=== PATIENT | female | born 1955 | race Caucasian/White ===

== ENCOUNTER 2020-09-21 22:29 | Inpatient (IN) ==
[2020-09-22] MEDS ORDERED: *HR* Promethazine 25 MG/ML VIAL IM PRN (03:44)
[2020-09-22] MEDS ORDERED: Ondansetron 4 MG/2 ML VIAL IVP PRN (03:44)
[2020-09-22] MEDS ORDERED: Melatonin 3 MG TABLET PO PRN (03:44)
[2020-09-22] MEDS ORDERED: Acetaminophen 325 MG TABLET PO PRN (03:44)
[2020-09-22] MEDS ORDERED: *HR* HYDROcodone/Acet 5/325 mg TABLET PO PRN (03:44)
[2020-09-22] MEDS ORDERED: Naloxone 0.4 MG/ML INJ IVP PRN (03:44)
[2020-09-22] MEDS ORDERED: Azithromycin 500 MG in 0.9 % Sodium Chloride 250 ML IVPB SCH (04:00)
[2020-09-22 04:37] LABS: Basophils % 0.1 %; Hematocrit 39.1 % (35.3-44.9); Hemoglobin 12.7 g/dL (11.5-15.4); Immature Granulocytes % 0.8 % (0-4); Lymphocytes % 18.7 %; Mean Corpuscular HGB Conc 32.5 g/dL (31.6-35.5); Mean Corpuscular Hemoglobin 30.4 pg (28.0-33.3); Mean Corpuscular Volume 93.5 fL (83.0-100.0); Mean Platelet Volume 11.3 fL (9.4-12.4); Monocytes # 0.2 K/mcL (0.0-1.3); Monocytes % 2.2 %; Neutrophils # 5.6 K/mcL (1.6-8.9); Nucleated Red Blood Cells 0.3 /100 WBC (0); Platelet Count 149 K/mcL (140-400); Red Blood Count 4.18 M/mcL (3.82-4.97); Red Cell Distribution Width 13.2 % (11.5-14.5); Segmented Neutrophils % 78.2 %; White Blood Count 7.2 K/mcL (4.3-11.1)
[2020-09-22 04:44] LABS: INR 1.2; Prothrombin Time 14.2 Seconds (9.4-12.1)
[2020-09-22] MEDS ORDERED: Perflutren Lipid Microsphere 1.3 ML in 0.9 % Sodium Chloride 8.7 ML IVP PRN (04:53)
[2020-09-22 04:55] LABS: Lymphocytes # 1.4 K/mcL (0.6-4.6)
[2020-09-22] MEDS ORDERED: Ipratropium/Albuterol Neb 3 ML IH PRN (04:59)
[2020-09-22 05:01] LABS: Alanine Aminotransferase 27 Units/L (7-52); Albumin 3.7 g/dL (3.5-5.7); Albumin/Globulin Ratio 1.2 (1.1-2.2); Alkaline Phosphatase 76 Units/L (34-104); Aspartate Amino Transferase 21 Units/L (13-39); BUN/Creatinine Ratio 17 (6-26); Bilirubin,Total 0.6 mg/dL (0.3-1.0); Blood Urea Nitrogen 14 mg/dL (8-23); Calcium 8.5 mg/dL (8.6-10.3); Carbon Dioxide 28 mEq/L (23-29); Chloride 105 mEq/L (98-107); Chol/HDL Ratio 5.8 (0-4.9); Cholesterol 156 mg/dL (< 200); Globulin 3.1 g/dL (2.4-3.5); Glucose 162 mg/dL (70-105); HDL Cholesterol 27 mg/dL (40-59); LDL Cholesterol,Calculated 100 mg/dL (< 100); Osmolality,Calculated 298 (280-300); Phosphorous 2.9 mg/dL (2.7-4.5); Potassium 3.4 mEq/L (3.5-5.1); Sodium 142 mEq/L (136-145); Total Protein 6.8 g/dL (6.4-8.9); Triglycerides 145 mg/dL (< 150); eGFR For African Americans > 60 (> 60); eGFR For Non-African Americans > 60 (> 60)
[2020-09-22] MEDS ORDERED: *HR* Heparin 5,000 UNIT/ML VIAL IVP ONE (05:10)
[2020-09-22] MEDS ORDERED: *HR* Heparin 5,000 UNIT/ML VIAL IVP PRN ×2 (05:10)
[2020-09-22 05:21] LABS: Platelet Estimate Normal (Normal); Polychromasia 1+ (Not Present)
[2020-09-22] MEDS: MethylPREDNISolone 40 MG/ML VIAL IVP SCH ×2 (06:27→17:09)
[2020-09-22] MEDS: Heparin 25,000UNIT/250ML 1/2NS 25,000 UNIT/250 ML IV.SOLN IVC SCH (06:28)
[2020-09-22] MEDS: Azithromycin 500 MG in 0.9 % Sodium Chloride 250 ML IVPB SCH (06:35)
[2020-09-22] MEDS ORDERED: cefTRIAXone 1,000 MG in Water for inj. (sterile) 10 ML IVP SCH (09:00)
[2020-09-22] MEDS: Furosemide 40 MG/4 ML VIAL IVP SCH ×2 (10:11→21:09)
[2020-09-22] MEDS: cefTRIAXone 1,000 MG in Water for inj. (sterile) 10 ML IVP SCH (10:18)
[2020-09-22] MEDS: Aspirin 81 MG TAB.CHEW PO SCH (14:00)
[2020-09-22] MEDS ORDERED: traZODone 50 MG TABLET PO PRN (17:04)
[2020-09-22] MEDS ORDERED: diazePAM 10 MG TABLET PO PRN (17:04)
[2020-09-23] MEDS: Heparin 25,000UNIT/250ML 1/2NS 25,000 UNIT/250 ML IV.SOLN IVC SCH (05:48)
[2020-09-23] MEDS: Azithromycin 500 MG in 0.9 % Sodium Chloride 250 ML IVPB SCH (05:49)
[2020-09-23] MEDS: MethylPREDNISolone 40 MG/ML VIAL IVP SCH (05:49)
[2020-09-23] MEDS ORDERED: FLUoxetine 20 MG CAPSULE PO SCH (09:00)
[2020-09-23] MEDS: Ascorbic Acid 500 MG TABLET PO SCH (09:00)
[2020-09-23] MEDS: Aspirin 81 MG TAB.CHEW PO SCH (09:00)
[2020-09-23] MEDS ORDERED: NON-FORMULARY MEDICATION 1 EACH EACH (Pravastatin Sodium [Pravachol] 40 MG Tablet) PO SCH (09:00)
[2020-09-23] MEDS: Cholecalciferol (D-3) 1,000 UNIT (25MCG) TABLET PO SCH (09:00)
[2020-09-23] MEDS: cefTRIAXone 1,000 MG in Water for inj. (sterile) 10 ML IVP SCH (09:00)
[2020-09-23] MEDS: amLODIPine 5 MG TABLET PO SCH (09:00)
[2020-09-23] MEDS: Furosemide 40 MG/4 ML VIAL IVP SCH ×2 (09:00→21:20)
[2020-09-23 09:48] LABS: BUN/Creatinine Ratio 20 (6-26); Blood Urea Nitrogen 16 mg/dL (8-23); Calcium 8.8 mg/dL (8.6-10.3); Carbon Dioxide 32 mEq/L (23-29); Chloride 101 mEq/L (98-107); Glucose 155 mg/dL (70-105); Magnesium 2.1 mg/dL (1.6-2.6); Osmolality,Calculated 298 (280-300); Phosphorous 2.7 mg/dL (2.7-4.5); Potassium 3.2 mEq/L (3.5-5.1); Sodium 142 mEq/L (136-145); eGFR For African Americans > 60 (> 60); eGFR For Non-African Americans > 60 (> 60)
[2020-09-23] MEDS ORDERED: Potassium Chloride Elixir 20 MEQ/15 ML UDC PO ONE (14:02)
[2020-09-23] MEDS: Doxycycline 100 MG CAPSULE PO SCH (21:20)
[2020-09-24 02:46] LABS: BUN/Creatinine Ratio 24 (6-26); Blood Urea Nitrogen 19 mg/dL (8-23); Calcium 8.9 mg/dL (8.6-10.3); Carbon Dioxide 31 mEq/L (23-29); Chloride 101 mEq/L (98-107); Glucose 138 mg/dL (70-105); Osmolality,Calculated 296 (280-300); Phosphorous 2.4 mg/dL (2.7-4.5); Potassium 3.3 mEq/L (3.5-5.1); Sodium 141 mEq/L (136-145); eGFR For African Americans > 60 (> 60); eGFR For Non-African Americans > 60 (> 60)
[2020-09-24] MEDS ORDERED: Potassium Phosphate 44 MEQ in 0.9 % Sodium Chloride 250 ML IVPB ONE (07:34)
[2020-09-24] MEDS ORDERED: predniSONE 20 MG TABLET PO SCH (09:00)
[2020-09-24] MEDS ORDERED: Azithromycin 250 MG TABLET PO SCH (09:00)
[2020-09-24] MEDS: amLODIPine 5 MG TABLET PO SCH (09:20)
[2020-09-24] MEDS: Ascorbic Acid 500 MG TABLET PO SCH (09:20)
[2020-09-24] MEDS: Cholecalciferol (D-3) 1,000 UNIT (25MCG) TABLET PO SCH (09:20)
[2020-09-24] MEDS: Doxycycline 100 MG CAPSULE PO SCH (09:20)
[2020-09-24] MEDS: Aspirin 81 MG TAB.CHEW PO SCH (09:20)
[2020-09-24] MEDS: Furosemide 40 MG/4 ML VIAL IVP SCH (09:21)
[2020-09-24 15:12] VITALS: BP 143/78; PULSE 66; TEMP 98.4; O2SAT 96
== END 2020-09-24 18:20 | disposition home or self-care (01) | DRG 280 ==
LOC: 2NENU → SUATTDRO 09-22 02:31
PROVIDERS: ADMIT Family Medicine; ATTEND Internal Medicine

== ENCOUNTER 2021-01-13 17:39 | Observation (INO) ==
[2021-01-13] MEDS ORDERED: cefTRIAXone 1,000 MG in Water for inj. (sterile) 10 ML IVP ONE (18:20)
[2021-01-13] MEDS ORDERED: methylPREDNISolone 125 MG/2 ML VIAL IVP ONE (18:20)
[2021-01-13] MEDS ORDERED: Azithromycin 500 MG in 0.9 % Sodium Chloride 250 ML IVPB ONE (18:20)
[2021-01-13] MEDS ORDERED: Ondansetron 4 MG/2 ML VIAL IVP ONE (18:21)
[2021-01-13] MEDS ORDERED: Ipratropium/Albuterol Neb 3 ML IH ONE (18:21)
[2021-01-13 18:42] LABS: Basophils % 0.4 %; Eosinophils # 0.4 K/mcL (0.0-0.6); Eosinophils % 5.3 %; Hematocrit 43.3 % (35.3-44.9); Hemoglobin 13.9 g/dL (11.5-15.4); Immature Granulocytes % 0.4 % (0-4); Lymphocytes # 3.3 K/mcL (0.6-4.6); Lymphocytes % 43.1 %; Mean Corpuscular HGB Conc 32.1 g/dL (31.6-35.5); Mean Corpuscular Hemoglobin 31.2 pg (28.0-33.3); Mean Corpuscular Volume 97.3 fL (83.0-100.0); Monocytes # 0.8 K/mcL (0.0-1.3); Monocytes % 10.3 %; Neutrophils # 3.1 K/mcL (1.6-8.9); Platelet Count 216 K/mcL (140-400); Red Blood Count 4.45 M/mcL (3.82-4.97); Red Cell Distribution Width 12.7 % (11.5-14.5); Segmented Neutrophils % 40.5 %; White Blood Count 7.7 K/mcL (4.3-11.1)
[2021-01-13 18:49] LABS: INR 1.3; Prothrombin Time 14.5 Seconds (9.4-12.1)
[2021-01-13 18:52] LABS: Activated Partial Thrombo Time 36.8 Seconds (26.0-36.0)
[2021-01-13 18:55] LABS: BUN/Creatinine Ratio 11 (6-26); Blood Urea Nitrogen 9 mg/dL (8-23); Calcium 9.3 mg/dL (8.6-10.3); Carbon Dioxide 32 mEq/L (23-29); Chloride 103 mEq/L (98-107); Glucose 82 mg/dL (70-105); Osmolality,Calculated 288 (280-300); Potassium 3.8 mEq/L (3.5-5.1); Sodium 140 mEq/L (136-145); Troponin I < 0.03 ng/mL (< 0.04); eGFR For African Americans > 60 (> 60); eGFR For Non-African Americans > 60 (> 60)
[2021-01-13 19:44] LABS: Bilirubin,Urine Negative (Negative); Blood,Urine Trace (Negative); Clarity,Urine Clear (Clear); Color,Urine Colorless (Yellow); Glucose,Urine (UA) Normal (Normal); Ketones,Urine Negative (Negative); Leukocyte Esterase,Urine Negative (Negative); Mucus,Urine Few per lpf (None-Few); Nitrite,Urine Negative (Negative); Protein,Urine Negative (Neg-Trace); RBC,Urine 0-3 per hpf (0-3); Specific Gravity,Urine 1.008 (1.010-1.025); Squamous Epithelial Cell,Urine Few per hpf (None-Few); Urobilinogen,Urine Normal (Normal)
[2021-01-13 19:51] LABS: Adenovirus Not Detected (Not Detect); Bordetella Pertussis Not Detected (Not Detect); Chlamydophila pneumoniae Not Detected (Not Detect); Coronavirus 229E Not Detected (Not Detect); Coronavirus HKU1 Not Detected (Not Detect); Coronavirus NL63 Not Detected (Not Detect); Coronavirus OC43 Not Detected (Not Detect); Human Metapneumovirus Not Detected (Not Detect); Human Rhinovirus/Enterovirus Not Detected (Not Detect); Influenza A Subtype 2009 H1 Not Detected (Not Detect); Influenza B Not Detected (Not Detect); Mycoplasma pneumoniae Not Detected (Not Detect); Parainfluenza Virus 1 Not Detected (Not Detect); Parainfluenza Virus 2 Not Detected (Not Detect); Parainfluenza Virus 3 Not Detected (Not Detect); Parainfluenza Virus 4 Not Detected (Not Detect); Respiratory Syncytial Virus Not Detected (Not Detect); SARS-CoV-2 Not Detected (Not Detect)
[2021-01-13] MEDS ORDERED: Naloxone 0.4 MG/ML INJ IVP PRN (21:48)
[2021-01-13] MEDS ORDERED: Acetaminophen 325 MG TABLET PO PRN (22:01)
[2021-01-13] MEDS ORDERED: Melatonin 3 MG TABLET PO PRN (22:01)
[2021-01-13] MEDS ORDERED: Ondansetron 4 MG/2 ML VIAL IVP PRN (22:01)
[2021-01-13] MEDS ORDERED: D5% in Water 1,000 ML IVC PRN (22:05)
[2021-01-13] MEDS ORDERED: *HR* Dextrose 50 % in Water (Syg) 50 ML SYRINGE IVP PRN (22:05)
[2021-01-13] MEDS ORDERED: Dextrose Gel 15 GM/37.5 ML TUBE PO PRN ×2 (22:05)
[2021-01-13] MEDS ORDERED: Ipratropium/Albuterol Neb 3 ML IH PRN (22:06)
[2021-01-13] MEDS: 0.9 % Sodium Chloride 1,000 ML IVC SCH (23:37)
[2021-01-14 03:01] LABS: Hematocrit 41.3 % (35.3-44.9); Hemoglobin 13.4 g/dL (11.5-15.4); Mean Corpuscular HGB Conc 32.4 g/dL (31.6-35.5); Mean Corpuscular Hemoglobin 31.1 pg (28.0-33.3); Mean Corpuscular Volume 95.8 fL (83.0-100.0); Mean Platelet Volume 11.1 fL (9.4-12.4); Platelet Count 204 K/mcL (140-400); Red Blood Count 4.31 M/mcL (3.82-4.97); Red Cell Distribution Width 12.4 % (11.5-14.5); White Blood Count 5.2 K/mcL (4.3-11.1)
[2021-01-14 03:19] LABS: BUN/Creatinine Ratio 12 (6-26); Blood Urea Nitrogen 9 mg/dL (8-23); Calcium 8.4 mg/dL (8.6-10.3); Carbon Dioxide 29 mEq/L (23-29); Chloride 106 mEq/L (98-107); Glucose 176 mg/dL (70-105); Magnesium 1.9 mg/dL (1.6-2.6); Osmolality,Calculated 295 (280-300); Phosphorous 3.2 mg/dL (2.7-4.5); Potassium 3.7 mEq/L (3.5-5.1); Sodium 141 mEq/L (136-145); eGFR For African Americans > 60 (> 60); eGFR For Non-African Americans > 60 (> 60)
[2021-01-14] MEDS: Ipratropium/Albuterol Neb 3 ML IH SCH ×2 (04:04→10:36)
[2021-01-14] MEDS ORDERED: *HR* Heparin 5,000 UNIT/ML VIAL SQ SCH (06:00)
[2021-01-14] MEDS ORDERED: MethylPREDNISolone 40 MG/ML VIAL IVP SCH (06:00)
[2021-01-14 06:18] VITALS: PULSE 75
[2021-01-14] MEDS ORDERED: *HR* Enoxaparin 40 MG/0.4 ML SYRINGE SQ ONE (07:30)
[2021-01-14] MEDS ORDERED: traZODone 50 MG TABLET PO PRN (07:37)
[2021-01-14] MEDS ORDERED: diazePAM 5 MG TABLET PO PRN (07:50)
[2021-01-14] MEDS ORDERED: predniSONE 20 MG TABLET PO SCH (09:00)
[2021-01-14] MEDS ORDERED: Azithromycin 250 MG TABLET PO SCH (09:00)
[2021-01-14] MEDS ORDERED: amLODIPine 5 MG TABLET PO SCH (09:00)
[2021-01-14] MEDS ORDERED: Metoprolol XL (24 HR) Succ 50 MG TAB.ER.24H PO SCH (09:00)
[2021-01-14] MEDS ORDERED: Furosemide 20 MG/2 ML VIAL IVP SCH (09:00)
[2021-01-14] MEDS ORDERED: Chlorhexidine Rinse 15 ML MOUTHWASH MM SCH (09:00)
[2021-01-14] MEDS ORDERED: Aspirin 325 MG TABLET PO SCH (09:00)
[2021-01-14] MEDS ORDERED: FLUoxetine 20 MG CAPSULE PO SCH (09:00)
[2021-01-14] MEDS ORDERED: Nicotine 14 MG PATCH.TD24 TD SCH (09:00)
[2021-01-14] MEDS: 0.9 % Sodium Chloride 1,000 ML IVC SCH (09:01)
[2021-01-14] MEDS ORDERED: Tiotropium 10 INH DOSE IH SCH (10:00)
[2021-01-14] MEDS ORDERED: Budesonide/Formoterol 160/4.5 1 PUFF INH IH SCH (10:00)
[2021-01-14 10:31] VITALS: BP 104/64; TEMP 97.4
[2021-01-14 11:09] VITALS: O2SAT 99
[2021-01-15] MEDS ORDERED: *HR* Enoxaparin 40 MG/0.4 ML SYRINGE SQ SCH (06:00)
== END 2021-01-14 15:50 | disposition home or self-care (01) ==
LOC: 2ANU 17:39 → EMEROOARM 17:39 → SUATTDRO 21:50 → 2ANU 22:46
PROVIDERS: ADMIT Family Medicine; ATTEND Internal Medicine